=== PATIENT | female | born 1995 | race Caucasian/White ===

== ENCOUNTER 2017-01-29 17:46 | Emergency (ER) | payer OTHER, SELFPAY ==
[~2017-01-29] VITALS: Ht 167.6 cm; Wt 97.9 kg
[~2017-01-29 17:46] MED LIST: ACET50TA PO; MOTR200T44 PO; PRENTAB9 PO
[2017-01-29 20:43] VITALS: BP 130/72
--- NOTE | 2017-01-29 22:13 | REP ---
SOFT TISSUE NECK, THREE VIEWS: HISTORY: Possible foreign body. There is no acute fracture or subluxation. The intervertebral discs are normal in height. Soft tissues of the neck are normal in appearance. There is no radiopaque foreign body. IMPRESSION: There is no radiopaque foreign body. Signed by Geraldo Bueno MD 01/30/2017 08:23 A
== END 2017-01-29 20:49 | disposition home or self-care (01) ==
LOC: M ED 17:46
DX: J02.9 Acute pharyngitis, unspecified (principal)